=== PATIENT | male | born 1955 | race Caucasian/White ===

== ENCOUNTER 2017-08-23 09:58 | Day surgery (SDC) | payer OTHER, BC ==
[~2017-08-23 09:58] MED LIST: Ketorolac 10 MG Tab PO PRN; ceFAZolin 2 GM in Premix Bag 1 BAG IV SCH
[2017-08-23] MEDS: Lactated Ringers 1,000 ML IV SCH ×2 (10:25→20:10)
[2017-08-23] MEDS ORDERED: Ondansetron 4 MG/2 ML SDV ONE (11:54)
[2017-08-23] MEDS ORDERED: Ketorolac 30 MG/ML SDV ONE (11:55)
[2017-08-23] MEDS ORDERED: Glycopyrrolate 0.2 MG/ML SDV ONE (11:55)
[2017-08-23] MEDS ORDERED: Propofol 200 MG/20 ML SDV ONE (11:55)
[2017-08-23] MEDS ORDERED: Rocuronium 10 MG/ML 10 ML Syringe ONE (11:55)
[2017-08-23] MEDS ORDERED: Midazolam 1 MG/ML 2 ML SDV ONE (11:55)
[2017-08-23] MEDS ORDERED: fentaNYL 100 MCG/2 ML SDV ONE ×2 (11:55→13:33)
--- NOTE | 2017-08-23 13:08 | PCM.PREANE ---
Preanesthetic Assessment - Procedure Proposed Procedure: Right Shoulder repair - Anesthesia/Transfusion/Family Hx Anesthesia History: Prior Anesthesia Reaction (arousal and memry when his knee operation was at Staple placement (end case).) Family History of Anesthesia Reaction: No - Review of Systems General: No Symptoms Pulmonary: Other (hx of bilateral bleb repair after spontaneous pneumothorax ( 2000)) Cardiovascular: Other (hypertension - ateneolol treated) Gastrointestinal: No Symptoms Neurological: Pre-Existing Deficit (pain in right shoulder) Other: Reports: Diabetes (prediabetic with recent treatment with metformin) - Physical Assessment NPO Status Date: 08/22/17 NPO Status Time: 22:00 O2 Sat by Pulse Oximetry: 94 Respiratory Rate: 16 Vital Signs: Last Vital Signs Temp 97.7 F 08/23/17 10:35 Pulse 49 L 08/23/17 10:35 Resp 16 08/23/17 10:35 BP 137/71 08/23/17 10:35 Pulse Ox 94 L 08/23/17 10:35 Height: 6 ft 2 in Weight: 243 lb ASA Class: 3 Mental Status: Alert & Oriented x3 Airway Class: Mallampati = 2 Dentition: Reports: Normal Dentition Thyro-Mental Finger Breadths: 3 Mouth Opening Finger Breadths: 3 ROM/Head Extension: Full Lungs: Clear to Auscultation, Normal Respiratory Effort Cardiovascular: Regular Rhythm, No Murmurs, Bradycardia (due to medicine ) - Allergies Allergies/Adverse Reactions: Allergies Allergy/AdvReac Type Severity Reaction Status Date / Time No Known Allergies Allergy Verified 08/18/17 11:51 - Blood Blood Available: No Product(s) Available: None - Anesthesia Plan Beta Berna: Atenolol Med Last Dose Date: 08/23/17 Med Last Dose Time: 07:00 - Acknowledgements Anesthesia Type Planned: General Anesthesia Pt an Appropriate Candidate for the Planned Anesthesia: Yes Alternatives and Risks of Anesthesia Discussed w Pt/Guardian: Yes Pt/Guardian Understands and Agrees with Anesthesia Plan: Yes Additional Comments: Discussed risks and benefits of interscalene block, possible risks of pneumo after positive pressure ventilation due to necessary management for the surgical procedure. He seems to understand. PreAnesthesia Questionnaire HEENT History: Reports: None Cardiovascular History: Reports: High Cholesterol, Hypertension Respiratory History: Reports: Pneumothorax Other Respiratory History: weston spontaneous pneumothorax in 2000 Gastrointestinal History: Reports: Hiatal Hernia, Other (See Below) Other Gastrointestinal History: occasional heartburn Genitourinary History: Reports: None Musculoskeletal History: Reports: Arthritis Neurological History: Reports: Other (See Below) Other Neuro History: "closed head injury at work 20 yrs ago" Psychiatric History: Reports: Anxiety Endocrine/Metabolic History: Reports: Diabetes, Type II, Obesity/BMI 30+ - Past Surgical History Head Surgeries/Procedures: Reports: None HEENT Surgical History: Reports: Tonsillectomy GI Surgical History: Reports: EGD Musculoskeletal Surgical History: Reports: Arthroscopic Knee, Knee Replacement Other Musculoskeletal Surgeries/Procedures:: weston knee replacements - SUBSTANCE USE Smoking Status *Q: Former Smoker Recreational Drug Use History: No - HOME MEDS Home Medications: Home Meds Aspirin [[place] Aspirin] 81 mg PO DAILY 08/18/17 [History] Atenolol 25 mg PO DAILY 08/18/17 [History] Ibuprofen 2 - 3 tab PO ASDIRECTED PRN 08/18/17 [History] Sildenafil [Viagra] 25 mg PO ASDIRECTED PRN 08/18/17 [History] atorvaSTATin Calcium [Atorvastatin Calcium] 20 mg PO DAILY 08/18/17 [History] metFORMIN HCl [Metformin HCl] 500 mg PO BID 08/18/17 [History] - CURRENT (IN HOUSE) MEDS Current Meds: Current Medications Hydrocodone Bitart/Acetaminophen ([place] 325-10 Mg) 1 - 2 tab PO Q4H PRN PRN Reason: Pain Cefazolin Sodium/Dextrose 2 gm (/ Premix) 50 mls @ 100 mls/hr IV ONCALL [facility] Lactated Ringer's (Ringers, Lactated) 1,000 mls @ 100 mls/hr IV ASDIRECTED [facility] Last Admin: 08/23/17 10:25 Dose: 100 mls/hr Ketorolac Tromethamine (Toradol) 10 mg PO Q6H PRN PRN Reason: Pain Stop: 08/28/17 08:01 Discontinued Medications Fentanyl (Sublimaze) Confirm Administered Dose 100 mcg .ROUTE .STK-MED ONE Stop: 08/23/17 11:56 Glycopyrrolate (Robinul) Confirm Administered Dose 0.2 mg .ROUTE .STK-MED ONE Stop: 08/23/17 11:56 Ketorolac Tromethamine (Toradol) Confirm Administered Dose 30 mg .ROUTE .STK- MED ONE Stop: 08/23/17 11:56 Midazolam HCl (Versed 1 Mg/Ml) Confirm Administered Dose 2 mg .ROUTE .[facility]-MED ONE Stop: 08/23/17 11:56 Ondansetron HCl (Zofran) Confirm Administered Dose 4 mg .ROUTE .[facility]-MED ONE Stop: 08/23/17 11:55 Propofol (Diprivan 20 Ml) Confirm Administered Dose 400 mg .ROUTE .[facility]-MED ONE Stop: 08/23/17 11:56 Rocuronium [place] (Zemuron) Confirm Administered Dose 100 mg .ROUTE .[facility]-MED ONE Stop: 08/23/17 11:56
[2017-08-23] MEDS ORDERED: Bupivacaine 0.25% 10 ML SDV ONE (13:19)
[2017-08-23] MEDS ORDERED: Sugammadex Sodium 200 MG/2 ML VIAL ONE ×2 (13:19→15:32)
[2017-08-23] MEDS ORDERED: Bupivacaine 0.5% 10 ML SDV ONE (13:19)
[2017-08-23] MEDS ORDERED: Morphine 10 MG/ML Syringe ONE (13:44)
[2017-08-23] MEDS ORDERED: ceFAZolin 1 GM Vial ONE (13:59)
[2017-08-23] MEDS ORDERED: Sodium Chloride 0.9% 20 ML ONE (13:59)
[2017-08-23] MEDS ORDERED: ePHEDrine 50 MG/ML SDV ONE (14:10)
--- NOTE | 2017-08-23 15:41 | PCM.OPNOTE ---
- General Post-Op/Procedure Note Date of Surgery/Procedure: 08/23/17 Operative Procedure(s): R shoulder arthroscopy with SAD, extensive debridement, and RTCR Post-Op Diagnosis: R shoulder impingement, biceps tendonopathy, degenerative ant /post labral tear, RTC tear Anesthesia Technique: General ET Tube Primary Surgeon: Alejandra Berg Cook Fish Eggs: Bradly Triplett in mLs: 10 Condition: Good Free Text/Narrative:: #[id number]
[2017-08-23] MEDS ORDERED: Ketorolac 10 MG Tab PO PRN (15:46)
[2017-08-23] MEDS: fentaNYL 100 MCG/2 ML SDV IVPUSH PRN ×2 (16:02→17:02)
--- NOTE | 2017-08-23 16:09 | PCM.POSTAN ---
POST ANESTHESIA ASSESSMENT - VITAL SIGNS Pulse Rate: 44 SaO2: 96 Resp Rate: 16 Blood Pressure: 127/77 - RESPIRATORY Respiratory Status: Respiratory Rate WNL - CARDIOVASCULAR CV Status: Slow Pulse Rate, Other Free Text/Narrative:: Pt Hr pre-op 48. - GASTROINTESTINAL GI Status: No Symptoms - PAIN Pain Score: 6 (Given Fentanyl) - POST OP HYDRATION Hydration Status: Adequate & Stable (Doing well. Ready for discharge to Same Day Surgery.)
[2017-08-23] MEDS: Acetaminophen/HYDROcodone 325-10 MG Tab PO PRN ×2 (17:03→22:49)
[2017-08-23] MEDS ORDERED: Ondansetron 4 MG/2 ML SDV IVPUSH PRN ×2 (17:28→19:13)
[2017-08-23] MEDS ORDERED: Sodium Chloride 0.9% 2.5 ML Syringe FLUSH PRN (18:53)
[2017-08-23] MEDS ORDERED: Sodium Chloride 0.9% 10 ML Syringe FLUSH PRN (18:53)
[2017-08-23] MEDS ORDERED: Morphine 4 MG/ML Syringe IVPUSH PRN (18:54)
[2017-08-23] MEDS ORDERED: Ondansetron 4 MG Tab.DIS PO PRN (18:55)
--- NOTE | 2017-08-23 20:03 | PCM.SN ---
- Free Text/Narrative Note: Anesthesia Note: Pt had a dizzy spell when getting up to the bathroom and has had a problem keeping his sats in the 90's without oxygen. After talking with Dr. Berg, plan to keep pt overnight to wean oxygen off.
--- NOTE | 2017-08-23 20:49 | OR ---
SURGEON: Alejandra Berg MD DATE OF PROCEDURE: 08/23/2017 PREOPERATIVE DIAGNOSES: 1. Right shoulder impingement syndrome. 2. Right shoulder biceps tendinopathy. POSTOPERATIVE DIAGNOSES: 1. Right shoulder impingement syndrome. 2. Right shoulder biceps tendinopathy. 3. 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 4. Right shoulder rotator cuff tear. PROCEDURES PERFORMED: Right shoulder arthroscopy with; 1. Subacromial decompression with release of coracoacromial ligament and acromioplasty. 2. Extensive debridement including debridement of degenerative anterior and posterior labral tears and biceps tenotomy. 3. Arthroscopic rotator cuff repair. BILLET RECORDER: Bradly Triplett MD, PGY-2 ANESTHESIA: General. ESTIMATED BLOOD LOSS: 10 mL. TOURNIQUET TIME: Zero minutes. COMPLICATIONS: None. DVT PROPHYLAXIS: PAS boots to bilateral lower extremities. IMPLANTS USED: Arthrex 4.5 mm Corkscrew anchor ([employer]) and 1 Arthrex 4.75 mm SwiveLock anchor ([employer]). BRIEF HISTORY: Marek is a 62-year-old male who has had complaint of progressive right shoulder pain. He had failed conservative treatment. Due to his lack of response to conservative treatment, I did recommend surgical intervention. The risks and goals of procedure were discussed with the patient and were documented preoperatively. He agreed to proceed. DESCRIPTION OF PROCEDURE: The patient was properly identified and brought to the operating room. He was transferred from the OR cart and placed on the operating room table in supine position. General anesthesia was administered. After adequate anesthesia was obtained, the patient was placed into a beach-chair position. Care was taken to pad all bony prominences. His head was secured. The right upper extremity was then prepped in standard fashion using ChloraPrep solution. It was then sterilely draped. A time-out was performed to ensure correct site and procedure. Preoperative antibiotics were given. The surgical site had been marked preoperatively. A marking pen was used to identify the bony landmarks. Approximately 30 mL of normal saline was introduced into the glenohumeral joint. A posterior portal arthrotomy was established. Blunt trocar and cannula were introduced into the glenohumeral joint. Camera, inflow, and outflow were assembled. The rotator interval was visualized. This showed mild synovitis. An anterior portal was then established. The subscapularis was visualized and probed and found to be intact. No loose bodies were identified within the subscapular recess. The anterior labrum showed quite a bit of degenerative fraying. There appeared to be evidence of a sublabral foramen as he has no previous history of instability. The biceps tendon was visualized. He did have tearing noted at its attachment to the superior labrum. Due to his preoperative symptoms along with the clinical findings, I elected to proceed with a biceps tenotomy. Electrocautery was used to resect the biceps tendon at its insertion on the superior glenoid. The biceps retracted easily into the biceps tendon sheath. Its attachment site was then smoothed with electrocautery. The electrocautery was then used to debride the degenerative anterior and posterior labral tears. The remainder of the labrum appeared intact. Both the glenoid and humeral head were visualized, and no significant degenerative changes were noted. I did extend into the axillary pouch, and no loose bodies were found. The arm was then brought into an abducted and externally rotated position. The bare area was noted posteriorly. As I progressed forward, there appeared to be good cuff attachment, although the anterior portion of the supraspinatus did show some degenerative fraying. No full-thickness tear was appreciated. The instruments were then removed from the glenohumeral joint. The arm was brought back into a neutral position. Blunt trocar and cannula were then introduced into the subacromial space. Camera, inflow, and outflow were assembled. A lateral portal was established. Using a combination of the shaver and electrocautery, an extensive bursectomy was performed. He did have abundant amount of bursal tissue present. The coracoacromial ligament was released anteriorly using electrocautery. An acromioplasty was then performed. This provided good decompression of the subacromial space. The rotator cuff was then inspected. He was found to have a small tear that was nearly full thickness through the anterior portion of the supraspinatus. I elected to complete the tear and proceed with surgical repair. Electrocautery was used to complete the tear. A cuff grasper was then used, and it showed that the cuff tissue was able to be easily reapproximated to the footprint. A 5.0 mm bur was then used to roughen the bone just lateral to the articular cartilage. I elected to use 1 suture anchor. One 4.5 mm Corkscrew anchor was then placed centrally into the defect. Four sutures were then passed through the cuff tissue. The cuff tissue appeared to be quite robust. The sutures were then tied in a [id number] fashion. This provided good compression of the rotator cuff to the footprint. I elected to proceed with a lateral row for additional compression of the rotator cuff. A 4.75 mm SwiveLock anchor was then placed laterally. The sutures were tensioned, and this provided good compression of the rotator cuff to the bony footprint. The rotator cuff was probed at completion, and the repair was found to be nearly watertight. The instruments were then removed from the shoulder. The portal sites were closed with 3-0 nylon. Xeroform gauze was placed over the wound, and a bulky dressing was applied. He was then placed into a shoulder immobilizer. He was awakened from his anesthetic and transferred back to the operating room cart. He was brought to recovery room in stable condition. All needle and sponge counts were correct. EDA / RIMA /[id number]
[2017-08-24] MEDS: Acetaminophen/HYDROcodone 325-10 MG Tab PO PRN ×2 (04:00→09:07)
--- NOTE | 2017-08-24 06:03 | PCM48HPAN ---
Post Anesthesia Note - EVALUATION WITHIN 48HRS OF ANESTHETIC Vital Signs in Normal Range: Yes Patient Participated in Evaluation: Yes Respiratory Function Stable: Yes Airway Patent: Yes Cardiovascular Function Stable: Yes Hydration Status Stable: Yes Pain Control Satisfactory: Yes Nausea and Vomiting Control Satisfactory: Yes Mental Status Recovered: Yes Pulse Rate: 56 SaO2: 95 Resp Rate: 14 Blood Pressure: 127/77 - COMMENTS/OBSERVATIONS Free Text/Narrative:: Pt awake and sitting up in bed on RA. Pt states that he was able to get up last night and walk without anymore dizzy spells. States pain has been well controlled and HR in the 50's and oxygen weaned off. No apparent anesthesia complications.
--- NOTE | 2017-08-24 07:55 | PCM.SURGPN ---
<Elaine Crews R - Last Filed: 08/24/17 07:53> - General Info Date of Service: 08/24/17 Date of Surgery/Procedure: 08/23/17 POD#: 1 Functional Status: Reports: Pain Controlled, Tolerating Diet, Ambulating, Urinating - Review of Systems General: Reports: No Symptoms Pulmonary: Reports: No Symptoms. Denies: Shortness of Breath Cardiovascular: Reports: No Symptoms. Denies: Chest Pain, Palpitations, Lightheadedness Gastrointestinal: Denies: Nausea Musculoskeletal: Reports: Shoulder Pain Systems Review Comment:: pt resting comfortably in bed states he is doing well this morning pain controlled has been up walking, no dizziness HR and o2 sats improved would like to go home today - Patient Data Vitals - Most Recent: Last Vital Signs Temp 98.3 F 08/24/17 00:00 Pulse 56 L 08/24/17 06:02 Resp 14 08/24/17 06:02 BP 127/77 08/24/17 06:02 Pulse Ox 95 08/24/17 06:02 Weight - Most Recent: 110.223 kg I&O - Last 24 Hours: Intake & Output 08/23/17 08/24/17 08/24/17 22:59 06:59 14:59 Intake Total 1100 640 Output Total 550 Balance 1100 90 Med Orders - Current: Current Medications Hydrocodone Bitart/Acetaminophen (Leopold 325-10 Mg) 1 - 2 tab PO Q4H PRN PRN Reason: Pain Last Admin: 08/24/17 04:00 Dose: 2 tab Cefazolin Sodium/Dextrose 2 gm (/ Premix) 50 mls @ 100 mls/hr IV ONCALL ROSE MARY Lactated Ringer's (Ringers, Lactated) 1,000 mls @ 100 mls/hr IV ASDIRECTED ROSE MARY Last Admin: 08/23/17 20:10 Dose: 100 mls/hr Ketorolac Tromethamine (Toradol) 10 mg PO Q6H PRN PRN Reason: Pain Stop: 08/28/17 08:01 Ketorolac Tromethamine (Toradol) 10 mg PO Q6H PRN PRN Reason: Pain Stop: 08/28/17 15:47 Morphine Sulfate (Morphine) 2 mg IVPUSH Q4H PRN PRN Reason: Pain (moderate 4-6) Last Admin: 08/23/17 20:10 Dose: 2 mg Ondansetron HCl (Zofran) 4 mg IVPUSH .ONETIME PRN PRN Reason: Nausea Last Admin: 08/23/17 17:35 Dose: 4 mg Ondansetron HCl (Zofran) 4 mg IVPUSH Q6H PRN PRN Reason: Nausea/Vomiting Sodium Chloride (Saline Flush) 10 ml FLUSH ASDIRECTED PRN PRN Reason: Keep Vein Open Sodium Chloride (Saline Flush) 2.5 ml FLUSH ASDIRECTED PRN PRN Reason: Keep Vein Open Discontinued Medications Bupivacaine HCl (Sensorcaine-Mpf 0.25%) Confirm Administered Dose 20 ml .ROUTE .STK-MED ONE Stop: 08/23/17 13:20 Bupivacaine HCl (Sensorcaine-Mpf 0.5%) Confirm Administered Dose 10 ml .ROUTE .STK-MED ONE Stop: 08/23/17 13:20 Cefazolin Sodium (Ancef) Confirm Administered Dose 2 gm .ROUTE .STK-MED ONE Stop: 08/23/17 14:00 Ephedrine Sulfate (Ephedrine Sulfate) Confirm Administered Dose 50 mg .ROUTE .STK-MED ONE Stop: 08/23/17 14:11 Fentanyl (Sublimaze) Confirm Administered Dose 100 mcg .ROUTE .STK-MED ONE Stop: 08/23/17 11:56 Fentanyl (Sublimaze) Confirm Administered Dose 100 mcg .ROUTE .STK-MED ONE Stop: 08/23/17 13:34 Fentanyl (Sublimaze) 50 mcg IVPUSH Q5M PRN PRN Reason: Pain Last Admin: 08/23/17 17:02 Dose: 50 mcg Glycopyrrolate (Robinul) Confirm Administered Dose 0.2 mg .ROUTE .STK-MED ONE Stop: 08/23/17 11:56 Acetaminophen (Ofirmev) Confirm Administered Dose 100 mls @ as directed IV .STK- MED ONE Stop: 08/23/17 13:21 Sodium Chloride (Normal Saline) Confirm Administered Dose 20 mls @ as directed .ROUTE .STK-MED ONE Stop: 08/23/17 14:00 Ketorolac Tromethamine (Toradol) Confirm Administered Dose 30 mg .ROUTE .STK- MED ONE Stop: 08/23/17 11:56 Lidocaine HCl (Xylocaine-Mpf 1%) 5 ml EPIDUR .STK-MED ONE Stop: 08/23/17 15:21 Midazolam HCl (Versed 1 Mg/Ml) Confirm Administered Dose 2 mg .ROUTE .STK-MED ONE Stop: 08/23/17 11:56 Morphine Sulfate (Morphine) Confirm Administered Dose 10 mg .ROUTE .STK-MED ONE Stop: 08/23/17 13:45 Ondansetron HCl (Zofran) Confirm Administered Dose 4 mg .ROUTE .STK-MED ONE Stop: 08/23/17 11:55 Propofol (Diprivan 20 Ml) Confirm Administered Dose 400 mg .ROUTE .STK-MED ONE Stop: 08/23/17 11:56 Rocuronium [place] (Zemuron) Confirm Administered Dose 100 mg .ROUTE .STK-MED ONE Stop: 08/23/17 11:56 - Exam Wound/Incisions: Dressing Dry and Intact General: Alert, Oriented Cardiovascular: Regular Rate, Regular Rhythm Extremities: Other (exam RUE - ain/pin/ulnar motor intact, radial/ulnar/median sensation intact, cap refill <2 sec) Physical Findings Comment:: vss, afeb o2 95% on room air hr 50s-60s - Problem List Review Problem List Initiated/Reviewed/Updated: Yes - My Orders Last 24 Hours: Active Orders 24 hr Category Date Time Status Patient Status [ADT] Routine ADT 08/23/17 18:50 Active Activity as Tolerated [RC] .Routine Care 08/23/17 18:52 Active Pulse Oximetry [RC] ASDIRECTED Care 08/23/17 18:56 Active Ready for Discharge [RC] PER UNIT ROUTINE Care 08/23/17 15:49 Active Regular Diet [DIET] Diet 08/24/17 Breakfast Active Acetaminophen/HYDROcodone [Leopold 325-10 MG] Med 08/23/17 08:00 Active 1 - 2 tab PO Q4H PRN Ketorolac [Toradol] Med 08/23/17 08:00 Active 10 mg PO Q6H PRN Ketorolac [Toradol] Med 08/23/17 15:46 Active 10 mg PO Q6H PRN Morphine Med 08/23/17 18:54 Active 2 mg IVPUSH Q4H PRN Ondansetron [Zofran] Med 08/23/17 17:28 Active 4 mg IVPUSH .ONETIME PRN Ondansetron [Zofran] Med 08/23/17 19:13 Active 4 mg IVPUSH Q6H PRN Sodium Chloride 0.9% [Saline Flush] Med 08/23/17 18:53 Active 10 ml FLUSH ASDIRECTED PRN Sodium Chloride 0.9% [Saline Flush] Med 08/23/17 18:53 Active 2.5 ml FLUSH ASDIRECTED PRN ceFAZolin [Ancef] 2 gm Med 08/23/17 08:00 Active Premix Bag 1 bag IV ONCALL Saline Lock Insert [OM.PC] Routine Oth 08/23/17 18:53 Ordered Medication Orders Hydrocodone Bitart/Acetaminophen (Leopold 325-10 Mg) 1 - 2 tab PO Q4H PRN PRN Reason: Pain Last Admin: 08/24/17 04:00 Dose: 2 tab Admin: 08/23/17 22:49 Dose: 2 tab Admin: 08/23/17 17:03 Dose: 1 tab Cefazolin Sodium/Dextrose 2 gm (/ Premix) 50 mls @ 100 mls/hr IV ONCALL ROSE MARY Lactated Ringer's (Ringers, Lactated) 1,000 mls @ 100 mls/hr IV ASDIRECTED ROSE MARY Last Admin: 08/23/17 20:10 Dose: 100 mls/hr Infusion: 08/23/17 20:10 Dose: 100 mls/hr Admin: 08/23/17 10:25 Dose: 100 mls/hr Ketorolac Tromethamine (Toradol) 10 mg PO Q6H PRN PRN Reason: Pain Stop: 08/28/17 08:01 Ketorolac Tromethamine (Toradol) 10 mg PO Q6H PRN PRN Reason: Pain Stop: 08/28/17 15:47 Morphine Sulfate (Morphine) 2 mg IVPUSH Q4H PRN PRN Reason: Pain (moderate 4-6) Last Admin: 08/23/17 20:10 Dose: 2 mg Ondansetron HCl (Zofran) 4 mg IVPUSH .ONETIME PRN PRN Reason: Nausea Last Admin: 08/23/17 17:35 Dose: 4 mg Ondansetron HCl (Zofran) 4 mg IVPUSH Q6H PRN PRN Reason: Nausea/Vomiting Sodium Chloride (Saline Flush) 10 ml FLUSH ASDIRECTED PRN PRN Reason: Keep Vein Open Sodium Chloride (Saline Flush) 2.5 ml FLUSH ASDIRECTED PRN PRN Reason: Keep Vein Open - Assessment Assessment (Free Text/Narrative):: POD#1 R RTCR - Plan Plan (Free Text/Narrative):: d/ch to home today d/ch instructions/meds done yesterday post-op <Alejandra Berg - Last Filed: 08/24/17 09:31> - Patient Data Vitals - Most Recent: Last Vital Signs Temp 97.7 F 08/24/17 08:43 Pulse 66 08/24/17 08:43 Resp 18 08/24/17 08:43 BP 161/79 H 08/24/17 08:43 Pulse Ox 96 08/24/17 08:43 I&O - Last 24 Hours: Intake & Output 08/23/17 08/24/17 08/24/17 22:59 06:59 14:59 Intake Total 1100 640 Output Total 550 Balance 1100 90 Med Orders - Current: Current Medications Hydrocodone Bitart/Acetaminophen (Leopold 325-10 Mg) 1 - 2 tab PO Q4H PRN PRN Reason: Pain Last Admin: 08/24/17 09:07 Dose: 2 tab Cefazolin Sodium/Dextrose 2 gm (/ Premix) 50 mls @ 100 mls/hr IV ONCALL ROSE MARY Lactated Ringer's (Ringers, Lactated) 1,000 mls @ 100 mls/hr IV ASDIRECTED ROSE MARY Last Admin: 08/23/17 20:10 Dose: 100 mls/hr Ketorolac Tromethamine (Toradol) 10 mg PO Q6H PRN PRN Reason: Pain Stop: 08/28/17 08:01 Ketorolac Tromethamine (Toradol) 10 mg PO Q6H PRN PRN Reason: Pain Stop: 08/28/17 15:47 Morphine Sulfate (Morphine) 2 mg IVPUSH Q4H PRN PRN Reason: Pain (moderate 4-6) Last Admin: 08/23/17 20:10 Dose: 2 mg Ondansetron HCl (Zofran) 4 mg IVPUSH .ONETIME PRN PRN Reason: Nausea Last Admin: 08/23/17 17:35 Dose: 4 mg Ondansetron HCl (Zofran) 4 mg IVPUSH Q6H PRN PRN Reason: Nausea/Vomiting Sodium Chloride (Saline Flush) 10 ml FLUSH ASDIRECTED PRN PRN Reason: Keep Vein Open Sodium Chloride (Saline Flush) 2.5 ml FLUSH ASDIRECTED PRN PRN Reason: Keep Vein Open Discontinued Medications Bupivacaine HCl (Sensorcaine-Mpf 0.25%) Confirm Administered Dose 20 ml .ROUTE .STK-MED ONE Stop: 08/23/17 13:20 Bupivacaine HCl (Sensorcaine-Mpf 0.5%) Confirm Administered Dose 10 ml .ROUTE .STK-MED ONE Stop: 08/23/17 13:20 Cefazolin Sodium (Ancef) Confirm Administered Dose 2 gm .ROUTE .STK-MED ONE Stop: 08/23/17 14:00 Ephedrine Sulfate (Ephedrine Sulfate) Confirm Administered Dose 50 mg .ROUTE .STK-MED ONE Stop: 08/23/17 14:11 Fentanyl (Sublimaze) Confirm Administered Dose 100 mcg .ROUTE .STK-MED ONE Stop: 08/23/17 11:56 Fentanyl (Sublimaze) Confirm Administered Dose 100 mcg .ROUTE .STK-MED ONE Stop: 08/23/17 13:34 Fentanyl (Sublimaze) 50 mcg IVPUSH Q5M PRN PRN Reason: Pain Last Admin: 08/23/17 17:02 Dose: 50 mcg Glycopyrrolate (Robinul) Confirm Administered Dose 0.2 mg .ROUTE .STK-MED ONE Stop: 08/23/17 11:56 Acetaminophen (Ofirmev) Confirm Administered Dose 100 mls @ as directed IV .STK- MED ONE Stop: 08/23/17 13:21 Sodium Chloride (Normal Saline) Confirm Administered Dose 20 mls @ as directed .ROUTE .STK-MED ONE Stop: 08/23/17 14:00 Ketorolac Tromethamine (Toradol) Confirm Administered Dose 30 mg .ROUTE .STK- MED ONE Stop: 08/23/17 11:56 Lidocaine HCl (Xylocaine-Mpf 1%) 5 ml EPIDUR .STK-MED ONE Stop: 08/23/17 15:21 Midazolam HCl (Versed 1 Mg/Ml) Confirm Administered Dose 2 mg .ROUTE .STK-MED ONE Stop: 08/23/17 11:56 Morphine Sulfate (Morphine) Confirm Administered Dose 10 mg .ROUTE .STK-MED ONE Stop: 08/23/17 13:45 Ondansetron HCl (Zofran) Confirm Administered Dose 4 mg .ROUTE .STK-MED ONE Stop: 08/23/17 11:55 Propofol (Diprivan 20 Ml) Confirm Administered Dose 400 mg .ROUTE .STK-MED ONE Stop: 08/23/17 11:56 Rocuronium [place] (Zemuron) Confirm Administered Dose 100 mg .ROUTE .STK-MED ONE Stop: 08/23/17 11:56 - Problem List & Annotations (1) Unspecified rotator cuff tear or rupture of right shoulder, not specified as traumatic SNOMED Code(s): 621948641 Code(s): M75.101 - UNSP ROTATR-CUFF TEAR/RUPTR OF RIGHT SHOULDER, NOT TRAUMA Status: Acute Current Visit: Yes Qualifiers: Rotator cuff tear extent: unspecified tear extent Qualified Code(s): M75.101 - Unspecified rotator cuff tear or rupture of right shoulder, not specified as traumatic - My Orders Last 24 Hours: Active Orders 24 hr Category Date Time Status Patient Status [ADT] Routine ADT 08/23/17 18:50 Active Activity as Tolerated [RC] .Routine Care 08/23/17 18:52 Active Pulse Oximetry [RC] ASDIRECTED Care 08/23/17 18:56 Active Ready for Discharge [RC] PER UNIT ROUTINE Care 08/23/17 15:49 Active Regular Diet [DIET] Diet 08/24/17 Breakfast Active Ketorolac [Toradol] Med 08/23/17 15:46 Active 10 mg PO Q6H PRN Morphine Med 08/23/17 18:54 Active 2 mg IVPUSH Q4H PRN Ondansetron [Zofran] Med 08/23/17 17:28 Active 4 mg IVPUSH .ONETIME PRN Ondansetron [Zofran] Med 08/23/17 19:13 Active 4 mg IVPUSH Q6H PRN Sodium Chloride 0.9% [Saline Flush] Med 08/23/17 18:53 Active 10 ml FLUSH ASDIRECTED PRN Sodium Chloride 0.9% [Saline Flush] Med 08/23/17 18:53 Active 2.5 ml FLUSH ASDIRECTED PRN Saline Lock Insert [OM.PC] Routine Oth 08/23/17 18:53 Ordered Medication Orders Hydrocodone Bitart/Acetaminophen (Leopold 325-10 Mg) 1 - 2 tab PO Q4H PRN PRN Reason: Pain Last Admin: 08/24/17 09:07 Dose: 2 tab Admin: 08/24/17 04:00 Dose: 2 tab Admin: 08/23/17 22:49 Dose: 2 tab Admin: 08/23/17 17:03 Dose: 1 tab Cefazolin Sodium/Dextrose 2 gm (/ Premix) 50 mls @ 100 mls/hr IV ONCALL ROSE MARY Lactated Ringer's (Ringers, Lactated) 1,000 mls @ 100 mls/hr IV ASDIRECTED ROSE MARY Last Admin: 08/23/17 20:10 Dose: 100 mls/hr Infusion: 08/23/17 20:10 Dose: 100 mls/hr Admin: 08/23/17 10:25 Dose: 100 mls/hr Ketorolac Tromethamine (Toradol) 10 mg PO Q6H PRN PRN Reason: Pain Stop: 08/28/17 08:01 Ketorolac Tromethamine (Toradol) 10 mg PO Q6H PRN PRN Reason: Pain Stop: 08/28/17 15:47 Morphine Sulfate (Morphine) 2 mg IVPUSH Q4H PRN PRN Reason: Pain (moderate 4-6) Last Admin: 08/23/17 20:10 Dose: 2 mg Ondansetron HCl (Zofran) 4 mg IVPUSH .ONETIME PRN PRN Reason: Nausea Last Admin: 08/23/17 17:35 Dose: 4 mg Ondansetron HCl (Zofran) 4 mg IVPUSH Q6H PRN PRN Reason: Nausea/Vomiting Sodium Chloride (Saline Flush) 10 ml FLUSH ASDIRECTED PRN PRN Reason: Keep Vein Open Sodium Chloride (Saline Flush) 2.5 ml FLUSH ASDIRECTED PRN PRN Reason: Keep Vein Open - Plan Plan (Free Text/Narrative):: 0830 Patient seen and examined. Agree with above note. Patient states that his pain has been well-controlled with medication. His oxygen saturation has been greater than 90% on room air. He denies any shortness of breath or chest pain. Exam of the right shoulder shows immobilizer to be in place. Dressing is intact. AIN/PIN/ulnar motor intact. Radial/ulnar/median sensation intact. Radial pulse 2+. 1. Discharge home today 2. See discharge instructions for remainder of plan
== END 2017-08-24 09:15 | disposition home or self-care (01) ==
LOC: MW.SDS 09:58 → MW.MS 19:35 → MW.SDS 08-24 09:15
PROVIDERS: ATTEND Orthopaedic Surgery
DX: M75.101 Unspecified rotator cuff tear or rupture of right shoulder, not specified as traumatic (principal); M75.41 Impingement syndrome of right shoulder; M75.21 Bicipital tendinitis, right shoulder; S43.491A Other sprain of right shoulder joint, initial encounter; M65.811 Other synovitis and tenosynovitis, right shoulder; M19.019 Primary osteoarthritis, unspecified shoulder; F41.9 Anxiety disorder, unspecified; E11.9 Type 2 diabetes mellitus without complications; E78.5 Hyperlipidemia, unspecified; N52.9 Male erectile dysfunction, unspecified; I10 Essential (primary) hypertension; E78.1 Pure hyperglyceridemia; E66.9 Obesity, unspecified; Z68.31 Body mass index [BMI] 31.0-31.9, adult; Z79.82 Long term (current) use of aspirin; Z79.899 Other long term (current) drug therapy; Z90.89 Acquired absence of other organs; Z79.84 Long term (current) use of oral hypoglycemic drugs
CPT/HCPCS: 29823; 29826; 29827; A9270; C1713; J0690; J1885; J2250; J2270; J2405; J3010; J3490; J7120; J2704